=== PATIENT | male | born 1995 | race Two or more races ===

== ENCOUNTER 2017-07-13 21:00 | Emergency (ER) | payer SELFPAY ==
--- NOTE | 2017-07-13 21:23 | PDOC ---
History of Present Illness - General History Source: Patient Exam Limitations: No Limitations - History of Present Illness Initial Comments: 07/13/17 21:31 The patient is a 22 year old male with a significant past medical history of shoulder dislocations brought in by ambulance to the emergency room with right shoulder pain. He reports that he dislocated his shoulder while playing basketball. The patient states that he has dislocated his shoulder twice in the past and was able to reset his shoulder on his own. He denies any drug allergies. <Dav Young - Last Filed: 07/13/17 21:31> <Sydney Mariee - Last Filed: 07/13/17 22:37> - General Chief Complaint: Pain, Acute Stated Complaint: PLAYING BASKETBALL DISLOCATED SHOULDER Time Seen by Provider: 07/13/17 21:02 Past History <Dav Young - Last Filed: 07/13/17 21:31> <Sydney Mariee - Last Filed: 07/13/17 22:37> - Past Medical History Allergies/Adverse Reactions: Allergies Allergy/AdvReac Type Severity Reaction Status Date / Time No Known Allergies Allergy Verified 07/13/17 21:30 Home Medications: Ambulatory Orders NK [No Known Home Medication] 07/13/17 Review of Systems - Review of Systems Able to Perform ROS?: Yes Comments:: 07/13/17 21:31 GENERAL/CONSTITUTIONAL: No fever or chills. No weakness. HEAD, EYES, EARS, NOSE AND THROAT: No change in vision. No ear pain or discharge. No sore throat. GASTROINTESTINAL: No nausea, vomiting, diarrhea or constipation. GENITOURINARY: No dysuria, frequency, or change in urination. CARDIOVASCULAR: No chest pain or shortness of breath. RESPIRATORY: No cough, wheezing, or hemoptysis. MUSCULOSKELETAL: (+) Right shoulder pain. No neck or back pain. SKIN: No rash NEUROLOGIC: No headache, vertigo, loss of consciousness, or change in strength/ sensation. ENDOCRINE: No increased thirst. No abnormal weight change. HEMATOLOGIC/LYMPHATIC: No anemia, easy bleeding, or history of blood clots. ALLERGIC/IMMUNOLOGIC: No hives or skin allergy. <Dav Young - Last Filed: 07/13/17 21:31> *Physical Exam - Physical Exam Comments: GENERAL: Awake, alert, and fully oriented, in no acute distress HEAD: No signs of trauma EYES: PERRLA, EOMI, sclera anicteric, conjunctiva clear ENT: Auricles normal inspection, hearing grossly normal, nares patent, oropharynx clear without exudates. Moist mucosa NECK: Normal ROM, supple, no lymphadenopathy, JVD, or masses EXTREMITIES: R shoulder with dec ROM due to pain. +Defect at the glenohumeral joint. Remainder of extremities with normal range of motion, no edema. No clubbing or cyanosis. No cords, erythema, or tenderness NEUROLOGICAL: Cranial nerves II through XII grossly intact. Normal speech, normal gait. Motor and sensation intact. SKIN: Warm, Dry, normal turgor, no rashes or lesions noted. <Sydney Mariee - Last Filed: 07/13/17 22:37> Procedures - Joint Reduction Right Joint Reduction Site: right: Shoulder Pre-Procedure NV Exam: normal Procedure: Other Post-Procedure NV Exam: normal Complications: No Post Joint Reduction Film: joint reduced Immobilized: Yes Progress: 07/13/17 21:55 Patient was positioned in the bed, elbow was bent at 90 degree angle. Slowly rotated the hand externally, shoulder spontaneously reduced without any pressure. <Sydney Mariee - Last Filed: 07/13/17 22:37> Medical Decision Making - Medical Decision Making 07/13/17 22:34 XR reviewed, shoulder successfully reduced. Stable for DC home. Sling placed. Recommended ortho f/u, as he has had multiple dislocations in the past. <Sydney Mariee - Last Filed: 07/13/17 22:37> *DC/Admit/Observation/Transfer - Attestations Scribe Attestion: 07/13/17 21:31 Documentation prepared by Dav Young, acting as biomedical repair technician for Sydney Mariee MD. <Dav Young - Last Filed: 07/13/17 21:31> - Discharge Dispostion Decision to Admit order: No <Sydney Mariee - Last Filed: 07/13/17 22:37> Diagnosis at time of Disposition: Shoulder dislocation Qualifiers: Encounter type: initial encounter Laterality: right Qualified Code(s): S43.004A - Unspecified dislocation of right shoulder joint, initial encounter - Discharge Dispostion Disposition: HOME Condition at time of disposition: Stable - Referrals Referrals: Victorino Dodge MD [Staff Physician] - - Patient Instructions Printed Discharge Instructions: DI for Shoulder Dislocation
[2017-07-13] MEDS ORDERED: morphine SULFATE 4 MG/ML VIAL IVPUSH ONE (21:28)
[2017-07-13] MEDS ORDERED: morphine SULFATE 4 MG/ML VIAL ONE (21:38)
[2017-07-13 21:49] VITALS: BP 135/78; PULSE 82; TEMP 98; BMI 26.9
== END 2017-07-13 22:27 | disposition home or self-care (01) ==
LOC: FER 21:00
PROC: 0RSJXZZ Reposition Right Shoulder Joint, External Approach (ICD-10-PCS; principal; 2017-07-13)
DX: S43.004A Unspecified dislocation of right shoulder joint, initial encounter (principal); X58.XXXA Exposure to other specified factors, initial encounter; Y93.89 Activity, other specified; Y92.9 Unspecified place or not applicable
CPT/HCPCS: 73030-TC-RT-FY; 99281-25